=== PATIENT | female | born 2000 | race African-American/Black ===

== ENCOUNTER 2019-03-02 13:07 | Emergency (ER) | payer MEDICAID ==
[~2019-03-02] VITALS: Ht 177.8 cm; Wt 104.3 kg
[2019-03-02 13:18] VITALS: BP 116/70
[2019-03-02 14:07] LABS: Urine Bacteria FEW /hpf (None Seen); Urine Blood Negative /uL (Negative); Urine Mucus FEW (None Seen); Urine Specific Gravity 1.025 (1.001-1.035); Urine WBC 4 /hpf (0 - 5)
== END 2019-03-02 15:53 | disposition home or self-care (01) ==
LOC: ER 13:07
DX: O23.41 Unspecified infection of urinary tract in pregnancy, first trimester (principal); Z3A.01 Less than 8 weeks gestation of pregnancy
CPT/HCPCS: 36415; 76801; 81001; 84702